=== PATIENT | male | born 1985 | race Caucasian/White ===

== ENCOUNTER 2017-09-10 16:48 | Emergency (ER) | payer MEDICAID ==
[~2017-09-10] VITALS: Ht 170.2 cm; Wt 75.0 kg
[~2017-09-10 16:48] MED LIST: CYCL-1 PO; FLUT16SP2 NS; HYDR-565 PO
[2017-09-10 17:08] VITALS: BP 134/114
[2017-09-10 18:55] LABS: CLARITY,URINE CLEAR (Clear); COLOR,URINE YELLOW (Yellow); GLUCOSE, URINE NEGATIVE (Neg); KETONES,URINE NEGATIVE (Neg); LEUKOCYTE ESTERASE ,URINE NEGATIVE (Neg); NITRITES, URINE NEGATIVE (Neg); OCCULT BLOOD,URINE NEGATIVE (Neg); PH,URINE 5.5 (4.8-8.0); PROTEIN,URINE NEGATIVE (Neg); UROBILINOGEN,URINE 0.2 E.U/dL (0.2-1.0)
[2017-09-10 19:05] LABS: UA COLLECTION TYPE URINAL
[2017-09-10] MEDS ORDERED: SULF1TAB49 PO (19:12)
[2017-09-10] MEDS ORDERED: VALA10002 PO (19:12)
== END 2017-09-10 19:40 | disposition home or self-care (01) ==
LOC: ER 16:49
DX: N48.9 Disorder of penis, unspecified (principal); N49.2 Inflammatory disorders of scrotum; Z98.890 Other specified postprocedural states; Z79.899 Other long term (current) drug therapy; Z79.2 Long term (current) use of antibiotics
CPT/HCPCS: 36415; 81003; 87070; 87077; 87186; 87491; 99284

== ENCOUNTER 2020-11-23 12:34 | Emergency (ER) | payer MEDICAID ==
[~2020-11-23] VITALS: Ht 172.7 cm; Wt 76.1 kg
[~2020-11-23 12:34] MED LIST changes: +HYDR-4353 PO; -HYDR-565 PO; +VALA10002 PO
[2020-11-23 12:43] VITALS: BP 134/80
[2020-11-23] MEDS ORDERED: CEPH-585 PO (13:14)
[2020-11-23] MEDS ORDERED: HYDR-3965 PO (13:14)
[2020-11-23] MEDS ORDERED: bacitracin 15gm ointment TP ONE (13:15)
== END 2020-11-23 13:38 | disposition home or self-care (01) ==
LOC: ER 12:36
DX: T24.401A Corrosion of unspecified degree of unspecified site of right lower limb, except ankle and foot, initial encounter (principal); T22.40XA Corrosion of unspecified degree of shoulder and upper limb, except wrist and hand, unspecified site, initial encounter; T22.411A Corrosion of unspecified degree of right forearm, initial encounter; T22.422A Corrosion of unspecified degree of left elbow, initial encounter; X12.XXXA Contact with other hot fluids, initial encounter; Z72.89 Other problems related to lifestyle; Z98.890 Other specified postprocedural states; Z79.2 Long term (current) use of antibiotics; Z79.899 Other long term (current) drug therapy; Y93.89 Activity, other specified; Y92.89 Other specified places as the place of occurrence of the external cause; Y99.0 Civilian activity done for income or pay
CPT/HCPCS: 99283

== ENCOUNTER 2021-04-26 11:02 | Emergency (ER) | payer MEDICAID ==
[~2021-04-26] VITALS: Ht 170.2 cm; Wt 80.0 kg
[2021-04-26 11:17] VITALS: BP 125/80
[2021-04-26] MEDS ORDERED: ketorolac trometh. 30mg/ml inj. IM ONE (11:35)
== END 2021-04-26 12:18 | disposition home or self-care (01) ==
LOC: ER 11:02
DX: M25.531 Pain in right wrist (principal); R20.0 Anesthesia of skin; Z72.89 Other problems related to lifestyle; Z98.890 Other specified postprocedural states; Z79.2 Long term (current) use of antibiotics; Z79.899 Other long term (current) drug therapy
CPT/HCPCS: 29125; 96372; 99283; J1885